=== PATIENT | female | born 1965 | race Hispanic/Latino ===

== ENCOUNTER 2018-07-08 07:43 | Day surgery (SDC) | payer BC ==
[2018-07-08 09:22] LABS: Basophils # (Auto) 0.1 K/mm3 (0.0-0.1); Basophils % (Auto) 0.9 % (0.0-1.8); Eosinophils # (Auto) 0.2 K/mm3 (0.0-0.4); Eosinophils % (Auto) 3.1 % (0.0-4.3); Hematocrit 39.3 % (30.3-42.9); Hemoglobin 13.6 gm/dl (10.1-14.3); Lymphocytes # (Auto) 2.8 K/mm3 (1.2-5.4); Lymphocytes % (Auto) 46.1 % (13.4-35.0); Mean Corpuscular HGB Conc 35 % (30-34); Mean Corpuscular Volume 93 fl (79-97); Monocytes # (Auto) 0.5 K/mm3 (0.0-0.8); Monocytes % (Auto) 7.7 % (0.0-7.3); Platelet Count 248 K/mm3 (140-440); Red Blood Count 4.23 M/mm3 (3.65-5.03); Red Cell Distribution Width 13.3 % (13.2-15.2)
[2018-07-08 09:27] LABS: INR 0.88 (0.87-1.13); Partial Thromboplastin Time 25.8 Sec. (24.2-36.6)
[2018-07-08 09:29] LABS: BUN/Creatinine Ratio 17; Blood Urea Nitrogen 12 mg/dL (7-17); Calcium 8.7 mg/dL (8.4-10.2); Hemolysis Index 18
[2018-07-08] MEDS ORDERED: ECOTRIN PO ONE (10:00)
[2018-07-08] MEDS: NACL 0.9% 500 ML 500 ML IV SCH ×2 (10:15→11:44)
[2018-07-08] MEDS ORDERED: HEPARIN/NS 5000 UNIT/500ML(CATH LAB) 1,000 ML IR ONE (11:10)
[2018-07-08] MEDS ORDERED: CALAN ONE (11:10)
[2018-07-08] MEDS ORDERED: HEPARIN 10,000 UNITS/10 ML ONE (11:10)
[2018-07-08] MEDS ORDERED: NITROGLYCERIN SYRINGE 0 ML ONE (11:11)
[2018-07-08] MEDS ORDERED: XYLOCAINE 2% INFILTRATI ONE (11:11)
[2018-07-08] MEDS ORDERED: HEPARIN/NS 5000 UNIT/500ML(CATH LAB) 500 ML IR ONE (11:29)
[2018-07-08] MEDS ORDERED: VERSED ONE (11:45)
[2018-07-08] MEDS ORDERED: SUBLIMAZE ONE (11:46)
--- NOTE | 2018-07-08 13:45 | Cardiac Catherization Report ---
LEFT AND RIGHT HEART CATHETERIZATION REFERRING PHYSICIAN: Dr. Bundy. INDICATION FOR PROCEDURE: The patient is an exceedingly pleasant 53-year-old female who is known to have moderate to severe eccentric mitral regurgitation and she is very symptomatic. She is referred here for left and right heart catheterization in anticipation of possible valve surgery. Risks, benefits, and alternatives discussed at length prior to obtaining informed consent. PROCEDURE IN DETAIL: The patient was brought to catheterization lab in a postabsorptive state and prepped and draped in sterile fashion. An 8 mL of 2% lidocaine used to anesthetize the right groin. A standard 5-Yoruba sheath used to cannulate the right common femoral artery via modified Seldinger technique. A standard 8-Yoruba sheath was used to cannulate the right femoral vein via modified Seldinger technique. At this point, we turned our attention to the right heart catheterization. A standard balloon tipped Stock[place]-Davina catheter advanced under fluoroscopic guidance. Pulmonary capillary wedge pressure was obtained was obtained. PA, RV, RA, IVC, and SVC pressures and sats were obtained respectively. Next, the catheter was removed from the body. We turned our attention to left heart catheterization. A JL4 catheter was used to engage the left main. No dampening or ventricularization. Cineangiography was performed in all projections. A JR4 catheter was used to engage the right coronary. No dampening or ventricularization. Cineangiography performed in all projections. Next, a pigtail catheter was used to cross the aortic valve under fluoroscopic guidance. Left ventriculography performed in 30 URIBE projection with power injector. Next, catheter was flushed. Manual pullback performed with continuous pressure monitoring. Next, catheter used for a root aortography in the ARLEEN projection with power injector. Next, catheter removed from the body of wire. Sheath was removed. Manual pressure used to achieve hemostasis. No complications. I directly supervised the administration of moderate sedation from 11:40 a.m. to 12:15 p.m. with fentanyl and Versed. INTERPRETATION: Aortic pressure is 130/80, LV pressure is 130, LVP of 25 mmHg. Left ventriculography reveals normal left ventricular systolic performance with an estimated ejection fraction of 50-55%. No evidence of aortic stenosis. RA pressure is mean of 11. RV pressure is 43 with an RVEDP of 9. LVEDP of 20. Cardiac index is 4.05. Cardiac index is 1.92. Pulmonary arterial pressure is 45 with a mean of 30. Pulmonary capillary wedge pressure is 25. The patient remained in normal sinus rhythm throughout the procedure. Root aortography reveals normal contour, normal grade vessel anatomy, no evidence of dissection, penetrating aortic ulcer, or aortic insufficiency. This is a strongly right dominant system. The right coronary is a large vessel, courses AV groove, distally bifurcates in the posterior descending and posterolateral branches. No discrete stenosis identified. Left main without significant disease, bifurcates left anterior descending and left circumflex. LAD is a smaller vessel, courses anterior interventricular groove, normal tapering. No significant disease in the LAD or diagonal. Left circumflex is a moderate sized vessel, courses AV groove. No significant disease. CONCLUSIONS: 1. No angiographic evidence of significant epicardial coronary disease in this strongly right dominant system. 2. Preserved left ventricular systolic performance with an estimated ejection fraction of 50-55%. 3. At least 3+ mitral regurgitation is noted. This could be an underestimation given the eccentric nature of the MR on echocardiogram. Root aortography without evidence of dissection, penetrating aortic ulcer, or aortic insufficiency. 4. Mildly elevated right heart pressures with a mean pulmonary arterial pressure of 31, pulmonary arterial wedge pressure between 20 and 25, RVEDP of 9, cardiac index of 1.9, and cardiac output of 4. At this point, the patient will follow up with Dr. Bundy in the office. She is clinically stable. Standard groin care. Discussed results of the procedure with the patient and family at length. Consider cardiac MRI. This confirms moderate to severe eccentric MR. We will consider therapeutic options at that point. Discussed with Dr. Budny as well. JOB# [id number] SBM/NTS
[2018-07-08 18:19] VITALS: BP 128/74
== END 2018-07-08 16:15 | disposition home or self-care (01) ==
LOC: CATHLABREC 07:43 → CR 07:43 → CATHLABREC 16:15
PROVIDERS: ATTEND Internal Medicine
DX: I34.0 Nonrheumatic mitral (valve) insufficiency (principal); Z79.899 Other long term (current) drug therapy; Z98.891 History of uterine scar from previous surgery; Z79.01 Long term (current) use of anticoagulants
CPT/HCPCS: 36415; 80048; 85025; 85610; 85730; 93005; 93010; 93460; 99156; 99157; J1644; J2250; J3010; J7040; Q9967